=== PATIENT | female | born 1960 | race African-American/Black ===

== ENCOUNTER 2020-05-30 05:56 | Day surgery (SDC) | payer OTHER ==
[2020-05-28 14:50] VITALS: BMI 35.4
[~2020-05-30 05:56] MED LIST: BUPIVACAINE HCL/PF 0.25% (2.5MG/ML) 10 ML VIAL IJ ONE
[2020-05-30] MEDS ORDERED: PROPOFOL 20 ML ONE (06:56)
[2020-05-30] MEDS ORDERED: MIDAZOLAM HCL 2 MG/2 ML SINGLE DOSE VIAL ONE ×2 (06:56→07:37)
[2020-05-30] MEDS ORDERED: EPINEPHrine 1:1,000 1 MG/1 ML - 30ML VIAL (INJECTION) ONE (07:09)
[2020-05-30] MEDS ORDERED: BUPIVACAINE HCL/PF 2.5 MG/ML - 30 ML VIAL IJ ONE (07:09)
[2020-05-30] MEDS ORDERED: ceFAZolin SODIUM 1 GM VIAL ONE (07:46)
[2020-05-30] MEDS ORDERED: ONDANSETRON 4 MG/2 ML VIAL ONE (07:51)
[2020-05-30] MEDS ORDERED: DEXAMETHASONE SOD PHOSPHATE 4 MG/1 ML VIAL ONE (07:51)
[2020-05-30] MEDS ORDERED: BUPIVACAINE HCL/PF 0.25% (2.5MG/ML) 10 ML VIAL IJ ONE (08:10)
[2020-05-30] MEDS ORDERED: KETOROLAC TROMETHAMINE 30 MG/1 ML VIAL ONE (08:12)
[2020-05-30] MEDS ORDERED: oxyCODONE HCL 5 MG TABLET PO PRN (08:33)
[2020-05-30] MEDS ORDERED: ONDANSETRON 4 MG/2 ML VIAL IVPUSH PRN (08:33)
[2020-05-30] MEDS ORDERED: LACTATED RINGERS SOLUTION 1,000 ML IV SCH (08:45)
[2020-05-30 09:39] VITALS: TEMP 97.9
[2020-05-30 10:30] VITALS: BP 130/86; PULSE 64
== END 2020-05-30 10:30 | disposition home or self-care (01) ==
LOC: FASU 05:56
PROVIDERS: ATTEND Orthopaedic Surgery
PROC: 0SBC4ZZ Excision of Right Knee Joint, Percutaneous Endoscopic Approach (ICD-10-PCS; 2020-05-30)
PROC: 0SBC4ZZ Excision of Right Knee Joint, Percutaneous Endoscopic Approach (ICD-10-PCS; 2020-05-30)
PROC: 0SBC4ZZ Excision of Right Knee Joint, Percutaneous Endoscopic Approach (ICD-10-PCS; 2020-05-30)
PROC: 0SBC4ZZ Excision of Right Knee Joint, Percutaneous Endoscopic Approach (ICD-10-PCS; principal; 2020-05-30 07:30)
DX: S83.281A Other tear of lateral meniscus, current injury, right knee, initial encounter (principal); S83.241A Other tear of medial meniscus, current injury, right knee, initial encounter; X58.XXXA Exposure to other specified factors, initial encounter; Y93.9 Activity, unspecified; Y92.9 Unspecified place or not applicable; Y99.9 Unspecified external cause status
CPT/HCPCS: 88304-TC; 94760